=== PATIENT | female | born 1990 | race Hispanic/Latino ===

== ENCOUNTER 2018-07-04 16:04 | Day surgery (SDC) | payer SELFPAY ==
[2018-07-04 16:48] VITALS: BP 109/59; TEMP 98.3; BMI 26.2
[2018-07-04] MEDS ORDERED: Lactated Ringer's 1,000 ML IV SCH ×2 (17:45)
[2018-07-04 18:00] LABS: Bilirubin Negative (Negative); Blood, Urine Negative (Negative); Clarity CLEAR (Clear); Glucose, Urine (Dipstick) Negative (Negative); Leukocyte Negative (Negative); Nitrite Negative (Negative); Protein, Urine (Dipstick) Trace mg/dL (Neg-Trace); Specific Gravity, Urine 1.017 (1.002-1.036); Urobilinogen 0.2 mg/dL (0.2-1.0); pH, Urine 7.5 (5.0-9.0)
[2018-07-04 18:03] LABS: Bacteria/HPF None Seen HPF (None Seen); Hyaline Casts/LPF 0-3 HYALINE CAST LPF (0-3 Hyaline); Pathc Cast-AUWi Flag 0.81 (0-2.49); RBC/HPF 0-3 HPF (0-3); Squamous Epithelial 0-3 HPF (0-3); WBC/HPF 0-3 HPF (0-3)
[2018-07-04 18:13] LABS: FFN Internal QC Analyzer PASS (PASS); FFN Internal QC Cassette PASS (PASS); Fetal Fibronectin Negative (Negative)
[2018-07-04 18:17] LABS: Hemoglobin 11.4 g/dL (12.0-16.0); Mean Corpuscular HGB CONC 34.2 g/dL (32.0-36.0); Mean Corpuscular Hemoglobin 32.3 pg (27.0-31.0); Mean Corpuscular Volume 94.2 fL (78.0-98.0); Mean Platelet Volume 7.7 fL (7.4-10.4); Platelet Count 246 thou/uL (130-400); RBC Distribution Width 12.2 % (11.5-14.5); Red Blood Cell (RBC) Count 3.53 mill/uL (4.20-5.40)
[2018-07-04 18:29] LABS: Band 18 % (5-11); Lymphocytes 8 % (21-51); MDiff Complete? YES; Monocytes 1 % (0-10); Neutrophil 72 % (42-75); Ovalocytes SLIGHT = 2-5 cells (100X) (0-1/hpf); Platelet Morphology Comment Appears Adequate; Polychromasia SLIGHT = 2-3 cells (100X) (0-2/hpf)
--- NOTE | 2018-07-04 19:15 | ULT ---
OBSTETRIC SONOGRAM LIMITED 07/04/18 HISTORY: Abdominal pain. Bleeding. Possible abruption. FINDINGS: Single intrauterine gestation partially visualized. Uterus is closed and 3.7 cm. Grade I placenta is to the right of midline. No underlying fluid is apparent. Heart motion at 160 beats per minute. Amnio tic fluid index is 17. IMPRESSION: No evidence of placental abruption. POS: [facility]
[2018-07-04] MEDS ORDERED: Morphine 4 MG/ML VIAL SLOW IVP PRN (19:28)
--- NOTE | 2018-07-05 08:29 | PRG ---
DATE OF SERVICE: 07/04/2018 PRIMARY OB: Hema Chilel MD CHIEF COMPLAINT: Abdominal pains. HISTORY OF PRESENT ILLNESS: The patient is a 28-year-old, G2, P1 female with an intrauterine at 30 weeks and 2 days, who presented to Labor and Delivery ER with a 2-hour history of acute onset abdominal pains. The patient reports these pains feel like contractions, where her abdomen and back get hard periodically. She reports that she has been feeling them frequently, but unable to say how often. She does report that they were painful and causing her a lot of concern. She denies any recent fall, headache, chest pain, shortness of breath. The patient did have vomiting this morning after lunch, said that the food did not agree with her. She also reports anorexia and has not been eating well. The patient denies diarrhea or constipation. Denies any new rashes, hip problems, knee problems. She does report she has been having some back pain and some pain with activity and movement. She is from [place] and has been here with us only for the last few weeks in the [place]. The patient denies any strenuous activity in the last few days. Denies intercourse. Denies trauma. The patient denies vaginal bleeding or leakage of fluid. Denies urinary urgency or frequency. PAST MEDICAL HISTORY: Negative. PAST SURGICAL HISTORY: One prior . ALLERGIES: NO KNOWN DRUG ALLERGIES. MEDICATIONS: vitamins. SOCIAL HISTORY: Denies drug, alcohol, or tobacco use. OB LABS: Unavailable at the time of dictation. REVIEW OF SYSTEMS: Per HPI. PHYSICAL EXAMINATION: VITAL SIGNS: Blood pressure of 109/59, heart rate of 93, respiratory rate of 18, and temperature of 98.3. GENERAL: She appears to be in no acute distress. She does appear uncomfortable with the contractions or abdominal pains. She is alert, oriented, cooperative, and pleasant to interact with. HEAD: Normocephalic, atraumatic. LUNGS: Clear to auscultation bilaterally. HEART: Has regular rate and rhythm. ABDOMEN: Gravid and soft. She does have some tenderness in the lower abdomen with palpation in deviation of the uterus. She has some SI joint tenderness. EXTREMITIES: Nontender, nonedematous. : Vulva is without masses, lesions, or erythema. Vagina is moist with some minimal discharge. Cervix is visibly closed. fibronectin and GC chlamydia and VPIII were collected. On digital exam, cervix was closed and thick with no presenting part palpable through the vaginal wall. heart tracing performed for abdominal pains in , baseline is in the 140s with moderate long-term variability positive 15 x 15 accelerations. Tocometer is showing contractions about every 2 to 3 minutes. Ultrasound was performed. Findings were included a cervical length of 3.7 cm, grade 1 placenta with no signs of concealed abruption or fluid collections. HARMEET of 17. LABORATORY WORK: Shows a white count of 15, hemoglobin of 11.4, hematocrit of 33.3, platelets of 246,000. Urine is clear with greater than 80 urine ketones, negative for blood, nitrites, leukocyte esterase, white blood cells, bacteria, or squamous cells. Her fibronectin was negative. VPIII was positive for Adenike, negative for Trichomonas and Gardnerella. The patient was hydrated about 2 L of fluid while she was here. The patient did tolerate a sandwich and Sprite. She was given a 4 mg of morphine during her course here. After a couple of hours, the patient reports that she was feeling a lot better and desired to be discharged home. ASSESSMENT AND PLAN: The patient is a 28-year-old female with an intrauterine at 30 weeks, having contractions, but no evidence of labor at this time. She was able to tolerate p.o., has evidence of yeast infection, but no other significant findings. The patient has been discharged home with reassurance and given labor precautions and instructions to use [id number] antifungal medication such as Monistat. Fetus is reactive and reassuring, and the patient has been counseled to follow up with her primary OB as scheduled. Job ID: [id number]
== END 2018-07-04 21:30 | disposition home or self-care (01) ==
LOC: L&D/OP 16:04
PROVIDERS: ATTEND Family Medicine
DX: O47.03 False labor before 37 completed weeks of gestation, third trimester (principal); O34.219 Maternal care for unspecified type scar from previous cesarean delivery; Z3A.30 30 weeks gestation of pregnancy
CPT/HCPCS: 36415; 76815; 81001; 82731; 85007; 85027; 87480; 87491; 87510; 87591; 87660; 96360; 96361; 96375; 99285; J2270